=== PATIENT | male | born 1995 | race African-American/Black ===

== ENCOUNTER 2016-10-18 02:50 | Emergency (ER) | payer OTHER ==
[~2016-10-18] VITALS: Ht 182.9 cm; Wt 99.8 kg
[~2016-10-18 02:50] MED LIST: HYDROXYZINE HCL25 M2 PO; MOTRIN800 MG PO; PERMETHRIN60 GM TOP; TRIAMCINOLONE A15 GM TOP
[2016-10-18 02:59] VITALS: BP 128/79
--- NOTE | 2016-10-18 03:10 | ED GENERAL ADULT ---
History of Present Illness General Chief Complaint: General Adult Stated Complaint: CHRONIC STD PER PT Source: patient, old records Exam Limitations: no limitations Vital Signs & Intake/Output Vital Signs & Intake/Output Vital Signs Date Time Temp Pulse Resp B/P Pulse O2 O2 Flow FiO2 Ox Delivery Rate 10/18 0259 98.1 89 16 128/79 96 Room Air Allergies Coded Allergies: NO KNOWN ALLERGIES (08/26/15) Reconcile Medications Hydroxyzine HCl 25 MG TABLET 1 TAB PO Q6P PRN ITCH Ibuprofen (Motrin) 800 MG TAB 1 TAB PO Q8H PRN PAIN Permethrin 5 % CREAM..G. 1 HEVER TOP ONCE scabies massage into skin from head to soles of feet one time, leave on for 8-14 hours then remove by thorough washing Triamcinolone Acetonide 0.025 % CREAM..G. 1 HEVER TOP BID rash apply to affected area(s) x 1 week 0.025% Triage Note: PT TO ED STATES " I CAME HERE BECAUSE I SPECULATE THAT I HAVE A CHRONIC STD". PT STATES THAT HE HAS A BLISTER AND 2 SORES IN MOUTH AND HAS HAD TWO SEX PARTNERS IN ONE MONTH, PT STATES HE DID NOT USE PROTECTION. PT STATES AFTER SEXUAL ENCOUNTERS HE HAS HAD BODY ACHES, RUNNING NOSE AND CONGESTION, FATIGUE. Triage Nurses Notes Reviewed? yes HPI: Patient had sexual intercourse with 2 separate ointment over this past month. Second female. [place] with 5 days ago. Shortly after having intercourse she developed fevers chills diffuse myalgias and anorexia nonproductive cough and runny nose and noticed an ulcer on the inside portion of his left cheek. Patient became concerned that he might have an STD because he did not use protection with either female. Patient denies any penile discharge or ulcerations on his genitalia. There is no dysuria. Patient denies any difficulty breathing or swallowing. There is no chest pain. Past History Travel History Traveled to [place] past 21 day No Medical History Any Pertinent Medical History? 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 No Review of Systems Review of Systems Constitutional: Reports: see HPI, chills, fever. EENTM: Reports: see HPI, nasal congestion. Respiratory: Reports: see HPI, cough. Cardiovascular: Reports: no symptoms. GI: Reports: see HPI. Genitourinary: Reports: no symptoms. Musculoskeletal: Reports: see HPI, muscle pain. Skin: Reports: no symptoms. Neurological/Psychological: Reports: no symptoms. Hematologic/Endocrine: Reports: no symptoms. Immunologic/Allergic: Reports: no symptoms. All Other Systems: Reviewed and Negative Physical Exam Physical Exam General Appearance: well developed/nourished, alert, awake, anxious, mild distress Head: atraumatic, normal appearance Eyes: Bilateral: PERRL, EOMI. Ears, Nose, Throat: normal pharynx, normal ENT inspection, hearing grossly normal, FEVER BLISTER TO INSIDE LEFT CHEEK Neck: normal inspection, supple, full range of motion Respiratory: normal breath sounds, chest non-tender, no respiratory distress, lungs clear Cardiovascular: regular rate/rhythm, normal peripheral pulses Gastrointestinal: normal bowel sounds, soft, non-tender, no organomegaly Back: normal inspection, normal range of motion Extremities: normal inspection, normal capillary refill, normal range of motion, no edema Neurologic/Psych: no motor/sensory deficits, awake, alert, oriented x 3, normal gait, normal mood/affect Skin: intact, normal color, warm/dry Lymphatic: no anterior cervical constantino Core Measures ACS in differential dx? No CVA/TIA Diagnosis: No Severe Sepsis Present: No Septic Shock Present: No Progress Differential Diagnoses I considered the following diagnoses in my evaluation of the patient: [Influenza ] Plan of Care: Patient advised that he really should use protection every time he has intercourse. Initial ED EKG: none Departure Departure Disposition: HOME OR SELF CARE Condition: Stable Clinical Impression Primary Impression: Viral syndrome Referrals: PATIENT HAS NO PRIMARY CARE DR (PCP/Family) Additional Instructions: USE PROTECTION EVERY TIME RETURN FOR ANY CONCERNS Departure Forms: Customer Survey General Discharge Information Critical Care Note Critical Care Note Critical Care Time: non-applicable
== END 2016-10-18 03:14 ==
LOC: ERH 02:50
DX: B34.9 Viral infection, unspecified (principal)
CPT/HCPCS: 99282

== ENCOUNTER 2017-02-01 17:49 | Emergency (ER) | payer OTHER ==
[~2017-02-01] VITALS: Ht 185.4 cm; Wt 100.2 kg
[2017-02-01 17:52] VITALS: BP 144/89
--- NOTE | 2017-02-01 18:20 | ED SKIN/ALLERGY COMPLAINT ---
History of Present Illness General Chief Complaint: Skin Rash/ Abcess Stated Complaint: RASH ON ARMS AND HANDS Source: patient, old records Exam Limitations: no limitations Vital Signs & Intake/Output Vital Signs & Intake/Output Vital Signs Date Time Temp Pulse Resp B/P B/P Pulse O2 O2 Flow FiO2 Mean Ox Delivery Rate 02/01 1752 98.6 101 18 144/89 98 Room Air Allergies Coded Allergies: NO KNOWN ALLERGIES (08/26/15) Reconcile Medications Hydroxyzine HCl 50 MG TABLET 1 TAB PO TID PRN RASH Hydroxyzine HCl 25 MG TABLET 1 TAB PO Q6P PRN ITCH Ibuprofen (Motrin) 800 MG TAB 1 TAB PO Q8H PRN PAIN Methylprednisolone. (Medrol) 4 MG TAB.DS.PK 1 DP PO AD DERMATITIS 6 on day 1 then reduce by one tablet daily until gone Permethrin 5 % CREAM..G. 1 HEVER TOP ONCE scabies massage into skin from head to soles of feet one time, leave on for 8-14 hours then remove by thorough washing Triamcinolone Acetonide 0.025 % CREAM..G. 1 HEVER TOP BID rash apply to affected area(s) x 1 week 0.025% Triage Note: 21 YO MALE TO TRIAGE C/O RASH ALL OVER BODY (WORSE ON HANDS) STATES THEY ARE LITTLE WHITE ITCHY BUMPS. Triage Nurses Notes Reviewed? yes Onset: Abrupt Duration: week(s): (1), constant Timing: recent history Severity: mild Severity Numbers: 4 Location: extremities Possible Factors: no cause identified No Modifying Factors: none Associated Symptoms: DENIES HPI: Is a 21-year-old male presents to ER for evaluation complaining of a pruritic itchy rash to his left hand and bilateral arms for the past 1 week. He states that the rash resolved to his arms he has not taken anything for symptoms of history of similar rashes in the past no recent tick or insect bite no recent travel no fever no chills. No modifying factors or associated symptoms otherwise. (CORTNEY KEITH) Past History Travel History Traveled to [place] past 21 day No Medical History Any Pertinent Medical History? 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 No (CORTNEY KEITH) Review of Systems Review of Systems Constitutional: Reports: see HPI. All Other Systems: Reviewed and Negative Comments Review of systems: See HPI, All other systems negative. Constitutional, no chills no fever, no malaise HEENT: No visual changes no sore throat no congestion Cardiovascular: No chest pain , no palpitation Skin: no rashes, no change in skin Respiratory: No dyspnea no cough no sputum GI: No nausea no vomiting, no diarrhea, : No dysuria No hematuria Muscle skeletal: No joint pain, no back pain, no neck pain, Neurologic: No numbness no headache Psych: No stress Heme/endocrine: No bruising Immunology: No lymphadenopathy (CORTNEY KEITH) Physical Exam Physical Exam General Appearance: well developed/nourished, no apparent distress, alert, awake Comments: Well-developed well-nourished patient in no apparent distress. HEENT: Atraumatic, extraocular motion intact, PHARYNX IS WNL Neck: Supple, FROM Back: FROM Cardiovascular: Regular rate and rhythms no murmurs rubs Respiratory: Chest nontender.There were no bony deformities, no asymmetry. No respiratory distress. Patient speaking in full complete sentences. Breath sounds clear to auscultation bilaterally: NO W/R/R Extremities: full range of motion Neuro: awake, alert, and oriented to person, place and time. There were no obvious focal neurologic abnormalities. Skin: Warm & dry;small macular papular rash noted to left 2nd finger, no abraSIONS, skin intact, no erythema Psych: Mood affect normal, normal memory normal judgment. (CORTNEY KEITH) Progress Differential Diagnosis: abscess/cellulitis, allergic reaction, contact dermatitis, lyme disease, scabies, bed beugs Plan of Care: I discussed with the patient at length all of their results. I had an extensive conversation regarding need for close follow up with their primary care physician this week as well as return precautions. I answered all of their questions, they feel comfortable with the plan and follow-up care. I discussed with the patient/family the medications that they will receive. I gave them signs and symptoms that could indicate an adverse reaction. I have advised them to limit their activities until they can see how they respond to the medication. (CORTNEY KEITH) Departure Departure Time of Disposition: 1822 Disposition: HOME OR SELF CARE Condition: Stable Clinical Impression Primary Impression: Rash Referrals: PATIENT HAS NO PRIMARY CARE DR (PCP/Family) Additional Instructions: MEDROL DOSEPAK AND HYDROXYZINE DIRECTED. THESE WERE SENT TO [facility]. Departure Forms: Customer Survey General Discharge Information Prescriptions: Current Visit Scripts Methylprednisolone. (Medrol) 1 DP PO AD #1 DP 6 on day 1 then reduce by one tablet daily until gone Hydroxyzine HCl 1 TAB PO TID PRN RASH #15 TAB (CORTNEY KEITH) PA/BENDING MACHINE SET UP OPERATOR Co-Sign Statement Statement: ED Attending supervision documentation- [] I saw and evaluated the patient. I have also reviewed all the pertinent lab results and diagnostic results. I agree with the findings and the plan of care as documented in the PA's/BENDING MACHINE SET UP OPERATOR's documentation. [X] I have reviewed the ED Record and agree with the PA's/BENDING MACHINE SET UP OPERATOR's documentation. [] Additions or exceptions (if any) to the PAs/BENDING MACHINE SET UP OPERATOR's note and plan are summarized below: [] (MELCHOR PUENTES DO
[2017-02-01] MEDS ORDERED: HYDROXYZINE HCL50 M1 PO (18:24)
[2017-02-01] MEDS ORDERED: MEDROL4 M2 PO (18:24)
== END 2017-02-01 18:37 ==
LOC: ERH 17:49
DX: R21 Rash and other nonspecific skin eruption (principal)

== ENCOUNTER 2017-08-23 10:40 | Emergency (ER) | payer OTHER ==
[~2017-08-23] VITALS: Ht 185.4 cm; Wt 102.1 kg
[~2017-08-23 10:40] MED LIST changes: +HYDROXYZINE HCL50 M1 PO; +IBUPROFEN800 M1 PO; +MEDROL4 M2 PO; +MOBIC15 M1 PO; +PERCOCET 5-3251 EACH PO
[2017-08-23 10:46] VITALS: BP 126/83
--- NOTE | 2017-08-23 11:56 | ED UPPER/LOWER EXTREMITY COMPL ---
History of Present Illness General Chief Complaint: Lower Extremity Injury Stated Complaint: LEFT FOOT AND KNEE PAIN Source: patient Exam Limitations: no limitations Vital Signs & Intake/Output Vital Signs & Intake/Output Vital Signs Date Time Temp Pulse Resp B/P B/P Pulse O2 O2 Flow FiO2 Mean Ox Delivery Rate 08/23 1046 96.3 87 18 126/83 99 Room Air Room Air Allergies Coded Allergies: NO KNOWN ALLERGIES (08/26/15) Reconcile Medications Meloxicam (Mobic) 15 MG TABLET 1 TAB PO DAILY pain Oxycodone HCl/Acetaminophen (Percocet 5-325 MG Tablet) 5 MG-325 MG TABLET 1-2 TAB PO BID pain Triage Note: PT TO ED "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 PT IS AMBULATORY IN TRIAGE. Triage Nurses Notes Reviewed? yes Onset: Abrupt Duration: hour(s):, constant Timing: recent history Severity: moderate, severe Pain/Injury Location: Left: Knee, Ankle. No Modifying Factors: none HPI: 22-year-old male comes into emergency room for further evaluation of left knee and ankle pain. 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 Denies hitting his head. He fell on his rear end. Some pain to his left knee and left ankle. He has a history of similar issues previously. Comes in for further evaluation. Denies any other associated symptoms. (Rufino Cisneros) Past History Travel History Traveled to [place] past 21 day No Medical History Any Pertinent Medical History? 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 No (Rufino Cisneros) Review of Systems Review of Systems Constitutional: Reports: no symptoms. EENTM: Reports: no symptoms. Respiratory: Reports: no symptoms. Cardiovascular: Reports: no symptoms. Gastrointestinal/Abdominal: Reports: no symptoms. Genitourinary: Reports: no symptoms. Musculoskeletal: Reports: see HPI. Skin: Reports: no symptoms. Neurological/Psychological: Reports: no symptoms. Hematologic/Endocrine: Reports: no symptoms. Immunological: Reports: no symptoms. All Other Systems: Reviewed and Negative (Rufino Cisneros) Physical Exam Physical Exam General Appearance: well developed/nourished, mild distress Head: atraumatic Eyes: Bilateral: normal appearance. Ears, Nose, Throat: normal ENT inspection, hearing grossly normal Neck: normal inspection Cardiovascular/Respiratory: no respiratory distress Back: normal inspection Hip Left: normal range of motion, normal inspection Knee Left: soft tissue tenderness, limited range of motion Foot Left: full range of motion of left ankle, soft tissue tenderness, Neurologic/Tendon: normal sensation, normal motor functions, normal tendon functions, responds to pain, no evidence tendon injury, no pulse deficit Skin: intact, normal color, warm/dry Lymphatic: no anterior cervical constantino (Rufino Cisneros) Progress Differential Diagnosis: contusion, dislocation, fracture, gout, sprain, tendon injury Plan of Care: Orders Procedure Date/time Status XRY-KNEE COMPLETE LEFT 08/23 1051 Active XRY-ANKLE 3 OR MORE VIEWS L 08/23 1051 Active Diagnostic Imaging: Viewed by Me: Radiology Read. Discussed w/RAD: Radiology Read. Radiology Impression: PATIENT: SANDY MAK PRESENT AGE: 22 PATIENT ACCOUNT NO: [id number] : 95 LOCATION: [facility] ORDERING PHYSICIAN: Rufino THOMAS SERVICE DATE: 08/23/17 EXAM TYPE : RAD - XRY-KNEE COMPLETE LEFT EXAMINATION: XR KNEE, LEFT CLINICAL INFORMATION: 22-year-old man with fall and pain. COMPARISON: 04/23/2017 radiograph TECHNIQUE: Four views of the left knee. FINDINGS: There is no evidence of acute fracture. Alignment remains anatomic. A well-corticated ossific density is again seen at the inferior patella. There is no significant suprapatellar joint effusion. IMPRESSION: No evidence of acute fracture or dislocation. DICTATED BY: Lucia Magallon MD DATE/TIME DICTATED:08/23/171154 PERMANENT WAVER:LAUREN DATE/TIME TRANSCRIBED:08/23/171154 CONFIDENTIAL, DO NOT COPY WITHOUT APPROPRIATE AUTHORIZATION. <Electronically signed in Other Vendor System> SIGNED BY: Sherita TRACY,Lucia 08/23/17 1202, PATIENT: SANDY MAK PRESENT AGE: 22 PATIENT ACCOUNT NO: [id number] : 95 LOCATION: [facility] ORDERING PHYSICIAN: Rufino THOMAS SERVICE DATE: 08/23/17 EXAM TYPE : RAD - XRY-ANKLE 3 OR MORE VIEWS L EXAMINATION: XR ANKLE, LEFT CLINICAL INFORMATION: Pain status post fall. Evaluate for fracture. COMPARISON: Left ankle radiographs 07/10/2017. TECHNIQUE: AP, lateral, and mortise views of the left ankle. FINDINGS: There is no evidence of acute fracture or dislocation. Joint spaces are maintained. No joint effusion. Soft tissues are unremarkable. IMPRESSION: Unremarkable radiographs of the left ankle. No evidence of acute fracture or dislocation. DICTATED BY: Jae Abad MD DATE/TIME DICTATED: 08/23/171153 PERMANENT WAVER:LAUREN DATE/TIME TRANSCRIBED:08/23/171153 CONFIDENTIAL, DO NOT COPY WITHOUT APPROPRIATE AUTHORIZATION. <Electronically signed in Other Vendor System> SIGNED BY: Jae Abad MD 08/23/17 1159 (Rufino Cisneros) Departure Departure Disposition: HOME OR SELF CARE Condition: Stable Clinical Impression Primary Impression: Left knee sprain Referrals: Unknown (PCP/Family) Additional Instructions: Ice. Rest. Motrin for pain. Elevation. Follow-up with orthopedic doctor provided if not better in 3-5 days. If symptoms do not improve you'll require further evaluation with possible repeat x-rays as well as evaluation by agricultural systems specialist. Sprains can last anywhere from days to weeks. No high impact running or jumping if you have an ankle sprain or any type of lower extremity sprain. Return to normal activity only after symptoms have resolved. Please go over all results of today's visit with your primary care doctor. Contact your primary care doctor to let them know you were here in the emergency room. There may be nonspecific findings which may not be related to your visit today here in the emergency room but may require further evaluation and chronic monitoring by your primary care doctor. If you had a laceration today the chance of foreign body always remains. You should follow-up with your primary care doctor for recheck in 3-5 days for a wound check. If you had an x-ray done there is a chance that a fracture could have been missed on initial read and you should follow-up with your primary care doctor for repeat x-rays if symptoms persist. If your blood pressure was elevated here in the emergency room please have rechecked by hyour primary care doctor within the next 48. If you were prescribed a narcotic here in the emergency room or any type of controlled substances you're not allowed to drive while taking this medication or operate any type of heavy machinery. Narcotics can make you feel lightheaded dizziness nausea and can cause constipation. You may need to cloth picker a stool softener. Thank you for choosing [facility] emergency room. Please return to the emergency room immediately if you have any other concerns worsening of symptoms. Departure Forms: Customer Survey General Discharge Information Industrial Accident Report Release- Work Prescriptions: Current Visit Scripts Oxycodone HCl/Acetaminophen (Percocet 5-325 MG Tablet) 1-2 TAB PO BID #10 TAB Meloxicam (Mobic) 1 TAB PO DAILY #30 TAB Comments 08/23/2017 2:18:06 PM Follow-up with occupational medicine. Follow-up with orthopedic. Return if any concerns. No evidence of acute trauma. (Rufino Cisneros) PA/MECHANICAL SYSTEMS CONTROL ENGINEER Co-Sign Statement Statement: ED Attending supervision documentation- [] I saw and evaluated the patient. I have also reviewed all the pertinent lab results and diagnostic results. I agree with the findings and the plan of care as documented in the PA's/MECHANICAL SYSTEMS CONTROL ENGINEER's documentation. [X] I have reviewed the ED Record and agree with the PA's/MECHANICAL SYSTEMS CONTROL ENGINEER's documentation. [] Additions or exceptions (if any) to the PAs/MECHANICAL SYSTEMS CONTROL ENGINEER's note and plan are summarized below: [] (Nima TRACY,Diane)
--- NOTE | 2017-08-23 11:59 | RADIOLOGY REPORT ---
EXAMINATION: XR ANKLE, LEFT CLINICAL INFORMATION: Pain status post fall. Evaluate for fracture. COMPARISON: Left ankle radiographs 07/10/2017. TECHNIQUE: AP, lateral, and mortise views of the left ankle. FINDINGS: There is no evidence of acute fracture or dislocation. Joint spaces are maintained. No joint effusion. Soft tissues are unremarkable. IMPRESSION: Unremarkable radiographs of the left ankle. No evidence of acute fracture or dislocation.
--- NOTE | 2017-08-23 12:02 | RADIOLOGY REPORT ---
EXAMINATION: XR KNEE, LEFT CLINICAL INFORMATION: 22-year-old man with fall and pain. COMPARISON: 04/23/2017 radiograph TECHNIQUE: Four views of the left knee. FINDINGS: There is no evidence of acute fracture. Alignment remains anatomic. A well-corticated ossific density is again seen at the inferior patella. There is no significant suprapatellar joint effusion. IMPRESSION: No evidence of acute fracture or dislocation.
[2017-08-23] MEDS ORDERED: MOBIC15 M1 PO (12:45)
[2017-08-23] MEDS ORDERED: PERCOCET 5-3251 EACH PO (12:45)
== END 2017-08-23 12:54 ==
LOC: ERH 10:40
DX: S83.92XA Sprain of unspecified site of left knee, initial encounter (principal); M25.572 Pain in left ankle and joints of left foot; W00.0XXA Fall on same level due to ice and snow, initial encounter; Y93.9 Activity, unspecified; Y92.89 Other specified places as the place of occurrence of the external cause
CPT/HCPCS: 73562-LT; 73610-LT